=== PATIENT | female | born 1950 | race Caucasian/White ===

== ENCOUNTER 2017-10-24 16:32 | Emergency (ER) | payer MEDICARE, OTHER ==
[2017-10-24] MEDS ORDERED: CEFAZOLIN 1 Gram 1 GM/50 ML BAG IVPB ONE (17:28)
[2017-10-24] MEDS ORDERED: TETANUS AND DIPHTHERIA PF 0.5 ML SYR IM ONE (17:29)
--- NOTE | 2017-10-24 18:03 | Emergency Department Record ---
History of Present Illness - General Chief complaint: Extremity Problem Stated complaint: SMASHED RT HAND Time Seen by Provider: 10/24/17 17:23 Source: Patient, Family Mode of Arrival: Ambulatory Limitations: No limitations - History of Present Illness Initial comments: pt got r ring finger caught between a trailer and a boat degloving the finger partially. pt denies other injury MD Complaint: Extremity pain Onset/Timin -: Minutes(s) Location: Right, Hand History of Same: No Severity scale (1-10): 3 Consistency: Constant Improves with: Immobilization Worsens with: Exertion, Palpation Associated Symptoms: Denies other symptoms - Related Data Previous Rx's Medication Instructions Recorded Hydrocodone/Acetaminophen [[place] 1 each PO Q6HR #10 tablet 10/24/17 5-325 Tablet] Allergies Allergy/AdvReac Type Severity Reaction Status Date / Time No Known Drug Allergies Allergy Verified 10/24/17 16:44 Travel Screening - Travel/Exposure Within Last 30 Days Have you traveled within the last 30 days?: Yes Location Detail:: [place] and [facility] - Travel/Exposure Within Last Year Have you traveled outside the [place] in the last year?: No - Additonal Travel Details Have you been exposed to anyone with a communicable illness?: No - Travel Symptoms Symptom Screening: None Review of Systems Reviewed: No additional complaints except as noted below Constitutional: Reports: As per HPI. Denies: Chills, Fever, Malaise, Night sweats, Weakness, Weight change Eyes: Reports: As per HPI. Denies: Eye discharge, Eye pain, Photophobia, Vision change ENT: Reports: As per HPI. Denies: Congestion, Dental pain, Ear pain, Epistaxis , Hearing loss, Throat pain Respiratory: Reports: As per HPI. Denies: Cough, Dyspnea, Hemoptysis, Stridor, Wheezes Cardiovascular: Reports: As per HPI. Denies: Arrhythmia, Chest pain, Dyspnea on exertion, Edema, Murmurs, Orthopnea, Palpitations, Paroxysmal nocturnal dyspnea, Rheumatic Fever, Syncope Endocrine: Reports: As per HPI. Denies: Fatigue, Heat or cold intolerance, Polydipsia, Polyuria Gastrointestinal: Reports: As per HPI. Denies: Abdominal pain, Constipation, Diarrhea, Hematemesis, Hematochezia, Melena, Nausea, Vomiting Genitourinary: Reports: As per HPI. Denies: Abnormal menses, Discharge, Dyspareunia, Dysuria, Frequency, Hematuria, Incontinence, Retention, Urgency Musculoskeletal: Reports: As per HPI. Denies: Arthralgia, Back pain, Gout, Joint swelling, Myalgia, Neck pain Skin: Reports: As per HPI. Denies: Bruising, Change in color, Change in hair/ nails, Lesions, Pruritus, Rash Neurological: Reports: As per HPI. Denies: Abnormal gait, Confusion, Headache, Numbness, Paresthesias, Seizure, Tingling, Tremors, Vertigo, Weakness Psychiatric: Reports: As per HPI. Denies: Anxiety, Auditory hallucinations, Depression, Homicidal thoughts, Suicidal thoughts, Visual hallucinations Hematological/Lymphatic: Reports: As per HPI. Denies: Anemia, Blood Clots, Easy bleeding, Easy bruising, Swollen glands Past Medical History - SOCIAL HISTORY Smoking Status: Never smoker Alcohol Use: Occasional Drug Use: None - RESPIRATORY Hx Respiratory Disorders: No - CARDIOVASCULAR Hx Cardio Disorders: No - NEURO Hx Neuro Disorders: No - GI Hx GI Disorders: No - Hx Genitourinary Disorders: No - ENDOCRINE Hx Endocrine Disorders: No - MUSCULOSKELETAL Hx Musculoskeletal Disorders: No - PSYCH Hx Psych Problems: No - HEMATOLOGY/ONCOLOGY Hx Hematology/Oncology Disorders: No Family Medical History Any Significant Family History?: Yes Hx Cancer: Mother, Brother/Sister Hx HTN: Father Physical Exam - General General Appearance: Alert, Oriented x3, Cooperative, Mild distress - Head Head exam: Normal inspection - Eye Eye exam: Normal appearance, PERRL, EOMI Pupils: Normal accommodation - ENT ENT exam: Normal exam, Mucous membranes moist, Normal external ear exam, Normal orophraynx Ear exam: Normal external inspection. negative: External canal tenderness Nasal Exam: Normal inspection. negative: Discharge, Sinus tenderness Mouth exam: Normal external inspection, Tongue normal Teeth exam: Normal inspection. negative: Dental caries Throat exam: Normal inspection. negative: Tonsillar erythema, Tonsillar exudate - Neck Neck exam: Normal inspection, Full ROM. negative: Tenderness - Respiratory Respiratory exam: Normal lung sounds bilaterally. negative: Respiratory distress - Cardiovascular Cardiovascular Exam: Normal rhythm, Normal heart sounds, Tachycardia - GI/Abdominal GI/Abdominal exam: Soft, Normal bowel sounds. negative: Tenderness - Rectal Rectal exam: Deferred - exam: Deferred - Extremities Extremities exam: Normal inspection, Full ROM, Normal capillary refill, Tenderness Image of Hand: 1 - partial degloving - Back Back exam: Reports: Normal inspection, Full ROM. Denies: Muscle spasm, Rash noted, Tenderness - Neurological Neurological exam: Alert, CN II-XII intact, Normal gait, Oriented X3 - Psychiatric Psychiatric exam: Normal affect, Normal mood - Skin Skin exam: Dry, Intact, Normal color, Warm Course Vital Signs 10/24/17 16:46 Temperature 98.1 F Pulse Rate 103 H Respiratory 20 Rate Blood Pressure 152/88 Pulse Ox 98 - Reevaluation(s) Reevaluation #1: 10/24/17 20:32 d/w dr siddiqui who wants it to be loosely closed and he will take her to surgery tomorrow Disposition Disposition: Discharge Clinical Impression: Degloving injury of finger Qualifiers: Encounter type: initial encounter Qualified Code(s): S61.209A - Unspecified open wound of unspecified finger without damage to nail, initial encounter Disposition: Home, Self-Care Condition: (1) Good Instructions: Skin Avulsion (ED) Additional Instructions: follow up at dr silver office at 0800. elevate hand. norco in 6 hours if needed. nothing by mouth after midnight Prescriptions: Hydrocodone/Acetaminophen [K[place] 5-325 Tablet] 1 each PO Q6HR #10 tablet Referrals: JAYA SIDDIQUI M.D. [MEDICAL DOCTOR] - Forms: Patient Portal Access Quality - Quality Measures Quality Measures: N/A - Blood Pressure Screening Does Patient Have Any of the Following: No Blood Pressure Classification: Pre-Hypertensive BP Reading Systolic Measurement: 152 Diastolic Measurement: 88 Screening for High Blood Pressure: < Pre-Hypertensive BP, F/U Documented > [ [id number]] Pre-Hypertensive Follow-up Interventions: Follow-up with rescreen every year. Laceration - Other - Time Out Informed consent:: Informed consent obtained Confirmed first & last name, , procedure, correct site?: Yes Start Date:: 10/24/17 Start Time:: 19:20 - Location Location of laceration:: Right Laceration located on:: Finger Laceration digit detail:: 4th Length of laceration:: 15 Length of laceration:: cm - Clean and Prep Laceration cleaning method:: Cleansed, Copious Irrigation, Extensive Cleaning Laceration cleaning agent:: Normal Saline - Local Anesthetic Lidocaine used:: 1% Lidocaine dose:: 4 mL - Medication Medicated for procedure?: No - Procedural Detail Tissue detail:: Crushed, Devitalized Foreign body in the wound?: No Undermining was preformed?: No Stent applied?: No [place] applied?: No Skin suture pattern:: Interrupted Suture material/size:: 4-0: Nylon, 5-0: Prolene, Nylon Number of skin sutures:: 15 Neurovascular intact?: Yes (tingling in finger tip) - Post Procedural Detail Complications:: Yes Procedure Tolerated by Patient:: Well
[2017-10-24] MEDS ORDERED: HYDROCODONE/APAP 5/325MG TABLET PO ONE (20:33)
--- NOTE | 2017-10-25 10:13 | RADIOLOGY REPORT ---
EXAM: RIGHT RING FINGER HISTORY: RIGHT RING FINGER CAUGHT BETWEEN BOAT AND TRAILER, CUT OPEN. TECHNIQUE: Three views of the right ring finger were obtained. Comparison: None. Encounter: Initial. FINDINGS: Extensive soft tissue deformity involving the radial aspect of the ring finger probably representing extensive laceration. There is a small amount of air along the ulnar aspect of the soft tissues of the adjacent third finger which may also be related to a laceration. Small chronic appearing bony density at the level of the DIP joint of the ring finger. The third finger partially obscures the proximal aspect of the ring finger on the lateral view, but no definite acute fracture or dislocation of the right ring finger identified. Apparent spur or exostosis like projection along the radial aspect of the head of the third metacarpal. 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 Degenerative arthritis at the IP joints of the fifth finger in particular as well. IMPRESSION: 1. EXTENSIVE SOFT TISSUE DEFORMITY INVOLVING THE RADIAL ASPECT OF THE FOURTH FINGER IN PARTICULAR. 2. NO DEFINITE ACUTE FRACTURE OF THE RIGHT FOURTH FINGER. 3. OTHER FINDINGS NOTED ABOVE. JOB NUMBER: [id number] [facility]
== END 2017-10-24 20:56 | disposition home or self-care (01) ==
LOC: ER 16:32
DX: S61.214A Laceration without foreign body of right ring finger without damage to nail, initial encounter (principal); W23.1XXA Caught, crushed, jammed, or pinched between stationary objects, initial encounter
CPT/HCPCS: 12045 ×2; 99284 ×2; 96372; 96365; 73140; J0690

== ENCOUNTER 2019-04-07 06:21 | Day surgery (SDC) | payer MEDICARE, OTHER ==
[~2019-04-07 06:21] MED LIST: ACETAMINOPHEN 1,000 MG/100 ML BTL IVPB ONE; CEFAZOLIN 2 Gram 2 GM/50 ML BAG IVPB ONE
[2019-04-07] MEDS ORDERED: LIDOCAINE 2% MDV (20MG/ML) 20ML VIAL IV ONE (06:22)
[2019-04-07] MEDS ORDERED: MIDAZOLAM HCL 2MG/2ML VIAL IV ONE (06:22)
[2019-04-07] MEDS ORDERED: PROPOFOL 10 MG/ML VIAL IV ONE (06:22)
[2019-04-07] MEDS ORDERED: FENTANYL PF 100MCG/2ML VIAL IV ONE (06:22)
[2019-04-07] MEDS ORDERED: RINGERS SOLUTION,LACTATED 1,000 ML IV ONE ×2 (07:20→09:30)
[2019-04-07] MEDS ORDERED: BUPIVACAINE 0.5% (5MG/ML) PF 30ML VIAL SQ ONE (09:07)
[2019-04-07] MEDS ORDERED: LIDOCAINE 1% MPF 100MG/10ML STERILE-PAK AMPULE SQ ONE (09:07)
--- NOTE | 2019-04-10 07:44 | Operative Note ---
DATE OF SURGERY: 04/07/2019 PREOPERATIVE DIAGNOSIS: PAINFUL BUNION DEFORMITY RIGHT FOOT AND PAINFUL TAILOR'S BUNION DEFORMITY RIGHT FOOT. POSTOPERATIVE DIAGNOSIS: PAINFUL BUNION DEFORMITY RIGHT FOOT AND PAINFUL TAILOR'S BUNION DEFORMITY RIGHT FOOT. OPERATION: EDY BUNIONECTOMY AND MIN-REVERSED EDY TAILOR'S BUNIONECTOMY RIGHT FOOT, BOTH WITH INTERNAL SCREW FIXATION. SURGEON: Lion De Leon D.P.M. INDICATION FOR PROCEDURE: The patient has painful bunion and tailor's bunion deformity right foot not responsive to conservative care requiring surgical intervention. X-ray consistent with bunion to the first metatarsal phalangeal joint right and tailor's bunion deformity right foot. ANESTHESIA: Local with IV sedation. PROCEDURE IN DETAIL: The patient was brought into the Operating Room Suite and placed supine upon the operating room table. After successful IV sedation was achieved a tibial nerve block and a first and fifth ray block were given into the right foot with approximately 30 ml of a 50/50 mixture of 1% Lidocaine plain and 0.5% Marcaine plain after alcohol prep. Padding was put on right ankle and a pneumatic cuff was put in place. The right foot, ankle and leg were prepped and draped in the usual sterile manner and exsanguinated with an Esmarch and the tourniquet was raised to 250 mmHg. The incision was outline and made to the first MPJ of the right foot dorsally approximately 4 cm in length. Sharp and blunt dissection were utilized to deepen the incision. All vital structures are identified and retracted without difficulty. Inverted L-capsulotomy was performed medially exposing an extremely large bony prominence in the medial aspect of the first metatarsal head which was removed with the power sagittal saw cooled with saline maintaining the plantar sagittal groove. Blunt and sharp dissection was utilized to deepen the incision to the first interspace, lateral capsulotomy was performed, the deep transverse ligament of the adductor tendon isolated and cut. The ligament between the fibular sesamoid and the first metatarsal head were released as well. Extensive hallucis brevis tendon isolated and cut. This allowed for appropriate soft tissue release. A 0.045 K- wire was then driven medial to lateral, directed towards the fifth metatarsal head slightly plantarly and perpendicular to the second metatarsal under C-arm guidance. The plantar and dorsal Edy cuts were made without difficulty and cooled with saline. Water was removed. The capital fragment was transposed approximately 2-3 mm laterally and temporarily fixated with two wires from the Osteomed set, driven from a distal dorsal to proximal plantar fascia through the capital fragment into the first metatarsal under C-arm guidance. The proximal cortices were drilled. These measured at 16 and 18 mm. One 2.4 mm x 16 mm and one 2.4 mm x 18 mm cannulated headless Osteomed screws were driven in typical cannulated fashion. Wires were removed. C-arm indicated good [id number] contact of the osteotomy, reduction in the first intermetatarsal angle, screws are the appropriate length and width. Bony prominence proximal medial aspect of the first metatarsal shaft removed with the power sagittal saw. Rectus first MPJ noted. No José osteotomy required. Capsulorrhaphy performed. Wound flushed with copious amounts of sterile saline. Attention was then directed to tailor's bunion right foot. A linear incision was outlined and made in the dorsal lateral aspect of the tailor's bunion approximately 3.5 cm in length. Sharp and blunt dissection were utilized to deepen the incision. All vital structures are identified and retracted. Inverted L-capsulotomy was performed and the bony prominences of the lateral aspect of the fifth metatarsal head isolated and removed with the power sagittal saw cooled with saline. Plantar and dorsal mini-reversed Edy cuts were made, capital fragment transposed approximately 1-2 mm medially and temporarily fixated with one wire from the Osteomed head driven from a distal dorsal to proximal plantar fascia and through the capital fragment into the fifth metatarsal shaft under C-arm guidance. The proximal cortex was drilled, this measured 16 mm and one headed cannulated Osteomed screw driven in typical cannulated fashion. All screws bit cortices well. Wire removed. C-arm indicated reduction of the tailor's bunion deformity with [id number] contact and the screw was the appropriate length and width. Residual bony prominence of the lateral aspect of the fifth metatarsal shaft reduced with the saw. Wound flushed with copious amounts of sterile saline. The capsule and subcu levels were closed in simple interrupted fashion with 3-0 and 4-0 Vicryl, the skin was closed in subcuticular continuous fashion with 5-0 PDS, and reinforced in simple interrupted fashion with 4-0 nylon. A combination of sterile Adaptic, 4x4's, 4-inch Perlita, and Richie wrap were applied. The tourniquet was deflated to 0 mmHg, hyperemic flush noted to all digits and foot. The patient tolerated the procedure well and was transferred to the Recovery Room in stable condition without complaint. She is to minimize ambulation with a CAM walker and crutches, keep the extremity elevated, take pain medication as needed, keep dressing clean, dry and intact and she is to contact me by cell phone as needed. She will follow-up in the office in the next several days. JOB NUMBER: [id number] MTDD
== END 2019-04-07 11:15 | disposition home or self-care (01) ==
LOC: SUR 06:21
PROVIDERS: ATTEND Podiatrist
DX: M21.621 Bunionette of right foot (principal); M20.5X1 Other deformities of toe(s) (acquired), right foot; M79.671 Pain in right foot
CPT/HCPCS: C1713; J3490; J7120